=== PATIENT | female | born 1950 | race Caucasian/White ===

== ENCOUNTER 2018-02-04 11:00 | Emergency (ER) | payer MEDICARE ==
[~2018-02-04] VITALS: Ht 162.6 cm; Wt 57.5 kg
[~2018-02-04 11:00] MED LIST: TOBRA.3%O OU; Z.0.NO CURRENT MEDS
[2018-02-04 11:04] VITALS: BP 185/79; PULSE 83; RESP 16; TEMP 99.1; O2SAT 98
--- NOTE | 2018-02-04 12:15 | PD ---
HPI Chief Complaint: Laceration/Skin Injury Time Seen by Provider: 11:22 Travel History International Travel<30 days: No Contact w/Intl Traveler<30days: No Traveled to known affect area: No History of Present Illness HPI 67-year-old female here with a laceration to her scalp after a 4 x 4 piece of wood fell and struck her in the head. She reports she was holding the ladder while her was attempting to nail a board to their roof. The piece of wood fell hitting her on the top of the scalp. She did not fall to the ground. There was no loss of consciousness. She is not anticoagulated. She noticed the scalp was bleeding and came in for evaluation. She denies headache, neck pain, visual changes, nausea or vomiting. Symptom severity is moderate. No aggravating or alleviating factors. PFSH Past Medical History Chemotherapy: Yes (HX of for uterine CA) Diminished Hearing: No ?: Not Menopausal: Yes : 2 Para: 2 Past Surgical History Section: Yes (X2) Tonsillectomy: Yes Social History Alcohol Use: Yes (OCCASSIONAL) Tobacco Use: No Substance Use: No Allergies-Medications (Allergen,Severity, Reaction): Coded Allergies: No Known Allergies (Verified Adverse Reaction, Unknown, 02/04/18) Reported Meds & Prescriptions Reported Meds & Active Scripts Active No Active Prescriptions or Reported Medications Review of Systems Except as stated in HPI: all other systems reviewed are Neg General / Constitutional: No: Fever Eyes: No: Visual changes HENT: No: Headaches Cardiovascular: No: Chest Pain or Discomfort Respiratory: No: Shortness of Breath Gastrointestinal: No: Abdominal Pain Genitourinary: No: Dysuria Physical Exam Narrative GENERAL: Alert and well-appearing 67-year-old female SKIN: Warm and dry. HEAD: Normocephalic. 1.5 cm laceration to the scalp parietal region of the scalp EYES: Pupils equal, round, reactive to light. EOMs intact. No injection or drainage. NECK: Supple, trachea midline. No cervical midline tenderness. Freely moves the neck. CARDIOVASCULAR: Regular rate and rhythm . No chest wall tenderness. RESPIRATORY: Breath sounds equal bilaterally. No accessory muscle use. GASTROINTESTINAL: Abdomen soft, non-tender, nondistended. MUSCULOSKELETAL: No cyanosis, or edema. Normal strength and sensation in upper and lower extremities. Data Data Last Documented VS Vital Signs Date Time Temp Pulse Resp B/P (MAP) Pulse Ox O2 Delivery O2 Flow Rate FiO2 02/04/18 11:04 99.1 83 16 185/79 (114) 98 Orders Orders Tetanus/Diphtheria Tox Adult (Tetanus/Di (02/04/18 12:30) Acetaminophen (Tylenol) (02/04/18 12:30) MDM Medical Decision Making Medical Screen Exam Complete: Yes Emergency Medical Condition: Yes Differential Diagnosis Scalp laceration, closed head injury, ICH unlikely Narrative Course 67-year-old female here with a laceration to her scalp. She is a normal neurologic exam. She is not anticoagulated. No signs or symptoms of ICH. No cervical spine tenderness. Laceration repair was performed. Procedures Procedure Narrative LACERATION LOCATION: SCALP LENGTH: 1.5 centimeters NUMBER OF STITCHES/BREONNA 2 breonna REPAIR: The area of the laceration was prepped with Betadine and sterilely draped. The wound was copiously irrigated and explored without evidence of foreign body, tendon injury or neurovascular injury. The wound was closed using [-breonna]. This was a single layer repair. Diagnosis Primary Impression: Scalp laceration Qualified Codes: S01.01XA - Laceration without foreign body of scalp, initial encounter Referrals: Primary Care Physician Additional Instructions: [place] need to be removed in 7-10 days. Follow-up with her primary doctor. Return if you have new or worsening symptoms such as severe headache, vomiting, visual changes Scripts No Active Prescriptions or Reported Meds Disposition: 01 DISCHARGE HOME Condition: Stable Jessica Mann February 04, 2018 12:15
[2018-02-04] MEDS ORDERED: TETANUS/DIPHTHERIA TOXOID ADULT 0.5 ML VIAL IM ONE (12:30)
[2018-02-04] MEDS ORDERED: ACETAMINOPHEN 325 MG TAB PO ONE (12:30)
== END 2018-02-04 12:29 | disposition home or self-care (01) ==
LOC: PHEFT 11:00
DX: S01.01XA Laceration without foreign body of scalp, initial encounter (principal); W20.8XXA Other cause of strike by thrown, projected or falling object, initial encounter; Z23 Encounter for immunization; Z85.42 Personal history of malignant neoplasm of other parts of uterus
CPT/HCPCS: 12001; 90471; 90714